=== PATIENT | male | born 1940 | race Caucasian/White ===

== ENCOUNTER 2018-04-04 08:48 | Observation (INO) ==
[2018-04-04] MEDS ORDERED: Naloxone 0.4 MG/ML INJ IVP PRN (09:09)
[2018-04-04] MEDS ORDERED: OXYCODONE Oral CONC 10 MG/0.5 ML ORAL.SYG SL PRN (09:09)
[2018-04-04] MEDS ORDERED: *HR* Promethazine 25 MG/ML VIAL IVP PRN (09:09)
[2018-04-04] MEDS ORDERED: Ketorolac 15 MG/ML VIAL IVP PRN (09:09)
[2018-04-04] MEDS ORDERED: 0.9 % Sodium Chloride 1,000 ML IVC SCH (09:15)
[2018-04-04 10:06] LABS: Basophils % 0.1 %; Hematocrit 34.2 % (37.5-50.1); Immature Granulocytes % 0.5 % (0-4); Lymphocytes # 0.5 K/mcL (0.6-4.6); Lymphocytes % 3.4 %; Mean Corpuscular HGB Conc 35.1 g/dL (31.6-35.5); Mean Corpuscular Hemoglobin 32.3 pg (28.0-33.3); Mean Corpuscular Volume 91.9 fL (83.0-100.0); Mean Platelet Volume 10.8 fL (9.4-12.4); Neutrophils # 14.2 K/mcL (1.6-8.9); Platelet Count 231 K/mcL (140-400); Red Blood Count 3.72 M/mcL (4.19-5.50); Red Cell Distribution Width 11.7 % (11.5-14.5)
[2018-04-04] MEDS ORDERED: MORPHINE SUL Oral CONC 10 MG/0.5 ML ORAL.SYG PO PRN (10:11)
[2018-04-04 10:24] LABS: BUN/Creatinine Ratio 16 (6-26); Blood Urea Nitrogen 17 mg/dL (8-23); Calcium 9.9 mg/dL (8.6-10.3); Carbon Dioxide 27 mEq/L (23-29); Chloride 97 mEq/L (98-107); Glucose 153 mg/dL (70-105); Osmolality,Calculated 279 (280-300); Potassium 4.3 mEq/L (3.5-5.1); Sodium 132 mEq/L (136-145); eGFR For Non-African Americans > 60 (> 60)
[2018-04-04] MEDS: 0.9 % Sodium Chloride 1,000 ML IVC SCH ×2 (11:16→20:04)
[2018-04-04] MEDS: Ondansetron 4 MG/2 ML VIAL IVP PRN (11:17)
[2018-04-04] MEDS: Levofloxacin 500 MG/100 ML 500 MG/100 ML BAG IVPB SCH (11:21)
--- NOTE | 2018-04-04 12:43 | Urology History & Physical ---
Date of Encounter: 04/04/18 Time of Encounter: 12:41 Assessment and Plan (1) Ureteral stone with hydronephrosis Current Visit: Yes Status: Acute I reviewed the CT scan stone protocol. he has a perinephric hematoma which can occur after ESWL. no toradol/anticoagulation and condition can be observed. he has multiple small fragments with the leading stone at the UVJ. he wishes to try to pass the stones overnight prior to proceeding with a stone extraction. will tentatively schedule tomorrow. labs OK. expected increase in WBC and mild anemia. renal function normal. History of Present Illness Chief complaint: left flank pain HPI: Mr. Michel is a 77 year old male ESWL monday for a 1 cm proximal left stone. has not passed any fragments. severe pain and N/V. Past Med Surg Social Fam HX - Past Medical History Medical history: cancer, other Psychiatric history: no psych history - Past Surgical History Surgical History: cancer surgery, prostatectomy - Social History Smoking Status: Unknown if ever smoked Smokeless Tobacco Status: No Alcohol use: none Drug use: none Medications and Allergies Aspirin 81 mg PO DAILY 01/15/16 [History] Simvastatin [Zocor] 40 mg PO HS 01/15/16 [History] Bicalutamide [Casodex] 50 mg PO DAILY 04/02/18 [History] Donepezil [Aricept] 5 mg PO HS 04/02/18 [History] HYDROcodone/Acet 5/325 mg [[place] 5-325 mg] 1 tab PO Q4H PRN 5 Days #15 tab 04/02 [Rx] Omeprazole [PriLOSEC] 40 mg PO DAILY 04/02/18 [History] Tramadol HCl [Ultram] 50 mg PO Q8H PRN 04/02/18 [History] Trazodone HCl 100 mg PO HS 04/02/18 [History] Venlafaxine [Effexor] 37.5 mg PO BID 04/02/18 [History] 3 Allergy/AdvReac Type Severity Reaction Status Date / Time Amoxicillin [From Amoxil] Allergy Rash Verified 04/02/18 12:02 Review of Systems - Constitutional no chills, no fever(s) - Cardiovascular no chest pain - Respiratory no cough - Gastrointestinal abdominal pain, nausea, vomiting - Genitourinary flank pain Exam Initial Vital Signs Temp Pulse Resp BP Pulse Ox 98.3 F 66 15 180/81 94 04/04/18 10:04 04/04/18 10:04 04/04/18 10:04 04/04/18 10:04 04/04/18 10:04 - General physical appearance Present: well developed, no distress, moderate pain - Eyes Present: PERRL - ENT Present: normal nares - Neck Present: no masses - Respiratory Present: normal respiratory effort - Cardiovascular Cardiovascular exam IM: RRR - Abdomen Abdomen: Present: soft, suprapubic tenderness - Integumentary Present: no rash - Neurologic Absent: disoriented, confused - Additional Findings obvious pain Urology Results - Labs 04/04/18 09:43 04/04/18 09:43 Abnormal lab results WBC 15.8 K/mcL (4.3-11.1) H 04/04/18 09:43 RBC 3.72 M/mcL (4.19-5.50) L 04/04/18 09:43 Hgb 12.0 g/dL (12.9-16.9) L 04/04/18 09:43 Hct 34.2 % (37.5-50.1) L 04/04/18 09:43 Neutrophils # 14.2 K/mcL (1.6-8.9) H 04/04/18 09:43 Lymphocytes # 0.5 K/mcL (0.6-4.6) L 04/04/18 09:43 Sodium 132 mEq/L (136-145) L 04/04/18 09:43 Chloride 97 mEq/L (98-107) L 04/04/18 09:43 Glucose 153 mg/dL (70-105) H 04/04/18 09:43 Calculated Osmolality 279 (280-300) L 04/04/18 09:43 Diabetes panel 04/04/18 Range/Units 09:43 Sodium 132 L (136-145) mEq/L Potassium 4.3 (3.5-5.1) mEq/L Chloride 97 L (98-107) mEq/L Carbon Dioxide 27 (23-29) mEq/L BUN 17 (8-23) mg/dL Creatinine 1.08 (0.70-1.30) mg/dL Glucose 153 H (70-105) mg/dL Calcium 9.9 (8.6-10.3) mg/dL Calcium panel 04/04/18 Range/Units 09:43 Calcium 9.9 (8.6-10.3) mg/dL Pituitary panel 04/04/18 Range/Units 09:43 Sodium 132 L (136-145) mEq/L Potassium 4.3 (3.5-5.1) mEq/L Chloride 97 L (98-107) mEq/L Carbon Dioxide 27 (23-29) mEq/L BUN 17 (8-23) mg/dL Creatinine 1.08 (0.70-1.30) mg/dL Glucose 153 H (70-105) mg/dL Calcium 9.9 (8.6-10.3) mg/dL Adrenal panel 04/04/18 Range/Units 09:43 Sodium 132 L (136-145) mEq/L Potassium 4.3 (3.5-5.1) mEq/L Chloride 97 L (98-107) mEq/L Carbon Dioxide 27 (23-29) mEq/L BUN 17 (8-23) mg/dL Creatinine 1.08 (0.70-1.30) mg/dL Glucose 153 H (70-105) mg/dL Calcium 9.9 (8.6-10.3) mg/dL All other labs normal.
[2018-04-04] MEDS: OXYCODONE Oral CONC 10 MG/0.5 ML ORAL.SYG SL PRN ×2 (12:53→20:01)
[2018-04-04] MEDS ORDERED: traZODone 50 MG TABLET PO SCH (21:00)
[2018-04-05] MEDS: 0.9 % Sodium Chloride 1,000 ML IVC SCH ×2 (03:16→12:00)
--- NOTE | 2018-04-05 07:10 | Urology Progress Note ---
Date of Encounter: 04/05/18 Time of Encounter: 07:08 - Assessment and Plan (1) Ureteral stone with hydronephrosis Current Visit: Yes Status: Acute Assessment and plan: keep NPO. consent signed. plan for stone extraction today. no longer hurting but I suspect stones are still there. will obtain KUB. no new labs needed today. Progress Note Narrative: pt no longer hurting. still not much appetite. no vomiting overnight. urine clear. Objective Initial Vital Signs Temp Pulse Resp BP Pulse Ox 98.3 F 66 15 180/81 94 04/04/18 10:04 04/04/18 10:04 04/04/18 10:04 04/04/18 10:04 04/04/18 10:04 - General physical appearance Present: no distress - Labs 04/04/18 09:43 04/04/18 09:43 Diabetes panel 04/04/18 Range/Units 09:43 Sodium 132 L (136-145) mEq/L Potassium 4.3 (3.5-5.1) mEq/L Chloride 97 L (98-107) mEq/L Carbon Dioxide 27 (23-29) mEq/L BUN 17 (8-23) mg/dL Creatinine 1.08 (0.70-1.30) mg/dL Glucose 153 H (70-105) mg/dL Calcium 9.9 (8.6-10.3) mg/dL Calcium panel 04/04/18 Range/Units 09:43 Calcium 9.9 (8.6-10.3) mg/dL Pituitary panel 04/04/18 Range/Units 09:43 Sodium 132 L (136-145) mEq/L Potassium 4.3 (3.5-5.1) mEq/L Chloride 97 L (98-107) mEq/L Carbon Dioxide 27 (23-29) mEq/L BUN 17 (8-23) mg/dL Creatinine 1.08 (0.70-1.30) mg/dL Glucose 153 H (70-105) mg/dL Calcium 9.9 (8.6-10.3) mg/dL Adrenal panel 04/04/18 Range/Units 09:43 Sodium 132 L (136-145) mEq/L Potassium 4.3 (3.5-5.1) mEq/L Chloride 97 L (98-107) mEq/L Carbon Dioxide 27 (23-29) mEq/L BUN 17 (8-23) mg/dL Creatinine 1.08 (0.70-1.30) mg/dL Glucose 153 H (70-105) mg/dL Calcium 9.9 (8.6-10.3) mg/dL - VTE Documentation of Mechanical Device: Intermittent pneumatic compression device Consult Discharge Plan - Plan Referrals: Henri Reaves DO [Primary Care Provider] - Jonn Botello MD [Partnered Physician] -
[2018-04-05] MEDS ORDERED: Bicalutamide 50 MG TABLET PO SCH (09:00)
[2018-04-05] MEDS: Levofloxacin 500 MG/100 ML 500 MG/100 ML BAG IVPB SCH (09:08)
[2018-04-05] MEDS: OXYCODONE Oral CONC 10 MG/0.5 ML ORAL.SYG SL PRN (09:10)
[2018-04-05] MEDS: Ondansetron 4 MG/2 ML VIAL IVP PRN (09:10)
--- NOTE | 2018-04-05 16:40 | Anesthesia Evaluation PreOp ---
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: Other (ANXIETY, DEPRESSION, EARLY DEMENTIA) Other Medical History: GERD, Other (ESWL 4 DAYS AGO) Anesthesia History: Past Anesthesia, Problems (PONV post ESWL on Monday) Alcohol Use: none Drug use: none Medications and Allergies Aspirin 81 mg PO DAILY 01/15/16 [History] Simvastatin [Zocor] 40 mg PO HS 01/15/16 [History] Bicalutamide [Casodex] 50 mg PO DAILY 04/02/18 [History] Donepezil [Aricept] 5 mg PO HS 04/02/18 [History] HYDROcodone/Acet 5/325 mg [[place] 5-325 mg] 1 tab PO Q4H PRN 5 Days #15 tab 04/02 [Rx] Omeprazole [PriLOSEC] 40 mg PO DAILY 04/02/18 [History] Tramadol HCl [Ultram] 50 mg PO Q8H PRN 04/02/18 [History] Trazodone HCl 100 mg PO HS 04/02/18 [History] Venlafaxine [Effexor] 37.5 mg PO BID 04/02/18 [History] 3 Allergy/AdvReac Type Severity Reaction Status Date / Time Amoxicillin [From Amoxil] Allergy Rash Verified 04/02/18 12:02 - Meds/Allergy Pre-op Review Medications Reviewed: Yes Allergies Reviewed: Yes Beta Blockers on Current Med List: No Anesthesia Results - Labs 04/04/18 09:43 04/04/18 09:43 Anesthesia Exam Vital Signs/O2 Sat/Glucose, Most Recent Temp Pulse Resp BP Pulse Ox 98.4 F 68 15 148/80 96 04/05/18 15:55 04/05/18 15:55 04/05/18 15:55 04/05/18 15:55 04/05/18 15:55 Blood Glucose* 103 Height: 1.73 m Weight: 79 kg NPO (# of Hours): 8 - HEENT Pupil (Motor): Pupils equal Mallampati: II Teeth: Edentulous Oral Opening: Greater than 3 - GLASS ETCHER LOC: Oriented - Cardiac Rhythm: Regular - Pulmonary Breath Sounds: bilateral Clear Anesthesia Assess/Plan ASA Score: 3 Modified B[place] Scale for Level of Consciousness: Cooperative, oriented, and tranquil Anesthetic Plan: General Monitoring Plan: Standard Monitors Recovery Plan: PACU
[2018-04-05] MEDS ORDERED: *HR* Propofol 200 MG/20 ML VIAL IVP ONE (16:43)
[2018-04-05] MEDS ORDERED: *HR* Succinylcholine 200 MG/10 ML VIAL IVP ONE (16:43)
[2018-04-05] MEDS ORDERED: *HR* FentaNYL (PF) 100 MCG/2 ML VIAL ONE (16:43)
[2018-04-05] MEDS ORDERED: Lidocaine -MPF 2% 2 ML VIAL ONE (16:43)
[2018-04-05] MEDS ORDERED: Ondansetron 4 MG/2 ML VIAL ONE (16:43)
[2018-04-05] MEDS ORDERED: Dexamethasone 4 MG/ML VIAL ONE (16:43)
[2018-04-05] MEDS ORDERED: Propofol 500 MG/50 ML INFUS..BTL ONE (16:48)
--- NOTE | 2018-04-05 16:51 | Anesthesia Evaluation PreOp ---
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, Depression) Alcohol Use: none Drug use: none Medications and Allergies Aspirin 81 mg PO DAILY 01/15/16 [History] Simvastatin [Zocor] 40 mg PO HS 01/15/16 [History] Bicalutamide [Casodex] 50 mg PO DAILY 04/02/18 [History] Donepezil [Aricept] 5 mg PO HS 04/02/18 [History] HYDROcodone/Acet 5/325 mg [[place] 5-325 mg] 1 tab PO Q4H PRN 5 Days #15 tab 04/02 [Rx] Omeprazole [PriLOSEC] 40 mg PO DAILY 04/02/18 [History] Tramadol HCl [Ultram] 50 mg PO Q8H PRN 04/02/18 [History] Trazodone HCl 100 mg PO HS 04/02/18 [History] Venlafaxine [Effexor] 37.5 mg PO BID 04/02/18 [History] 3 Allergy/AdvReac Type Severity Reaction Status Date / Time Amoxicillin [From Amoxil] Allergy Rash Verified 04/02/18 12:02 Anesthesia Results - Labs 04/04/18 09:43 04/04/18 09:43
[2018-04-05] MEDS ORDERED: *HR* Labetalol 20 MG/4 ML SYRINGE IVP PRN (17:25)
[2018-04-05] MEDS ORDERED: *HR* OxyCODONE Immed Rel 5 MG TABLET PO PRN (17:25)
[2018-04-05] MEDS ORDERED: *HR* Promethazine 25 MG/ML VIAL IVP PRN ×2 (17:25→18:32)
--- NOTE | 2018-04-05 17:46 | Operative Note ---
Date of procedure: 04/05/18 Pre-op diagnosis: left distal ureteral stones Post-op diagnosis: same Procedure: Left ureteroscopic basket removal of stone, left 4.8 x 28 cm ureteral stent placement Anesthesia: GETA Surgeon: Ryan Morales Was there an physical therapy assistant present: No Estimated blood loss (cc): 0 Specimen: Left ureteral stone Condition: stable Disposition: PACU Procedure in Detail: Patient was prepped and draped in normal sterile fashion. Timeout procedure performed. I then inserted the semirigid ureteroscope into the patient's bladder. I could visualize some stone at the left ureteral orifice. I then was able to use the basket to grab this leading stone. I was then able to place 2 ureteroscope into the distal left ureter and remove all stone fragments using a basket device. I then fully surveyed the entire left ureter with no further stone seen. A sensor wire was then placed into the left kidney. I then placed a 4.8 x 28 cm stent with good curl seen in the left kidney and in the bladder. A string was left for easy removal in 2-3 days. Patient taken to PACU in stable condition.
--- NOTE | 2018-04-05 17:49 | Discharge Summary ---
Orders not resulted at time of discharge: Pending orders 04/05/18 17:37 Surgical Pathology [PTH] Routine Date of Encounter: 04/05/18 Time of Encounter: 17:47 - Discharge Diagnosis (1) Ureteral stone with hydronephrosis Priority: Primary Status: Acute - Hospital Course Hospital course: Mr. Michel is a 77 year old male who was brought into the hospital for pain control after distal ureteral stones were found on CT scan causing obstruction. Patient discharged home after undergoing left ureteroscopic stone extraction. Stent was in place. Time spent discussing smoking cessation with patient: 3 to 10 minutes - Time Spent with Patient Total time spent providing and/or coordinating discharge services: Less than 30 minutes Procedures and tests throughout hospitalization: Left ureteroscopic stone extraction on 04/05/2018 Labs on day of discharge: Labs from last 24 hours 04/04/18 11:10 POC Glucose 138 H - Impressions ITS Impressions Abdomen/Pelvis CT 04/04/18 09:09 IMPRESSION: 1. Large left subcapsular hematoma extending into the perinephric space and extending inferiorly toward the left inguinal and presacral space. 2. Multiple stone fragments in the distal left ureter causing hydronephrosis and hydroureter. 3. 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 Correlate with PSA levels. 4. Small left pleural effusion and bibasilar atelectasis. Findings were discussed with Jonn Botello at 10:05 am on 04/04/2018. D/ / Hany Whitt MD / Hany Whitt MD Interpreting Provider: Hany Whitt MD X-Ray 04/05/18 07:10 IMPRESSION: 1. Stable appearance of distal left ureteral and UVJ stones over a length of 2.8 cm. 2. Unremarkable bowel gas pattern. D/ / 04/05/2018 09:03:49 Alicia Martinez MD / rio Interpreting Provider: Alicia Martinez MD - Discharge Medications Prescriptions: HYDROcodone/Acet 5/325 mg [[place] 5-325 mg] 1 tab PO Q6H PRN 3 Days #12 tab PRN Reason: Pain Home Medications: Aspirin 81 mg PO DAILY 01/15/16 [History] Simvastatin [Zocor] 40 mg PO HS 01/15/16 [History] Bicalutamide [Casodex] 50 mg PO DAILY 04/02/18 [History] Donepezil [Aricept] 5 mg PO HS 04/02/18 [History] Omeprazole [PriLOSEC] 40 mg PO DAILY 04/02/18 [History] Tramadol HCl [Ultram] 50 mg PO Q8H PRN 04/02/18 [History] Trazodone HCl 100 mg PO HS 04/02/18 [History] Venlafaxine [Effexor] 37.5 mg PO BID 04/02/18 [History] HYDROcodone/Acet 5/325 mg [[place] 5-325 mg] 1 tab PO Q6H PRN 3 Days #12 tab 04/05 [Rx] Allergies/Adverse Reactions: 3 Allergy/AdvReac Type Severity Reaction Status Date / Time Amoxicillin [From Amoxil] Allergy Rash Verified 04/02/18 12:02 Date of admission: 04/04/18 08:56 Primary care physician: Henri Reaves DO Discharging clinician: Ryan Morales Anticipated date of discharge: 04/05/18 Exam Initial Vital Signs Temp Pulse Resp BP Pulse Ox 98.3 F 66 15 180/81 94 04/04/18 10:04 04/04/18 10:04 04/04/18 10:04 04/04/18 10:04 04/04/18 10:04 - General physical appearance Present: well developed, well nourished - Eyes Present: PERRL - Cardiovascular Cardiovascular exam IM: RRR - Patient Status Disposition: Home, Self-Care Condition: Good Functional capacity at discharge: independent ambulation Overall status at discharge: patient is progressing back to baseline - Discharge Instructions Follow Up With: Henri Reaves DO [Primary Care Provider] - Jonn Botello MD [Partnered Physician] - (Keep scheduled follow-up) Additional Instructions: [id number] (Rev. 02/14) Page 1 of 2 POST-OPERATIVE HOME GOING INSTRUCTIONS: URETEROSCOPY/STENT/CYSTOSCOPY [facility] [address] [facility] [id number] Dr[address] Ayan Black Your post-operative appointment has been scheduled for 1. When you leave Same Day Surgery you may be given: Prescriptions - Please finish all antibiotics. follow- up visit if instructed by your physician. 2. You should drink 6-8 glasses of water per day, as long as you are not on fluid restrictions by another physician. 3. It is very common to have blood and small clots in you urine following surgery. You may also experience urinary tract discomfort, irritation of the bladder and urethra (frequency, urgency, and pain/burning with urination), and occasional inability to control your urine. No sexual intercourse until evaluated by your physician 4. If you have a stent, you can expect pain: In your bladder radiating up to your kidney when, and after, you urinate When lifting something heavy When you turn or bend If you have a stent, you can expect frequency, urgency, and burning with urination and intermittent pink/red colored urine. You can work with a stent in place, but if you do a lot of heavy lifting or moving around you will see more blood in your urine. This is OKAY- just drink more fluids. If a string is taped to your abdomen, penis or thigh, it is connected to your stent. DO NOT pull on, or cut, your stent string, unless otherwise instructed by your physician. 5. Okay for patient to remove stent in 2-3 days. - Diet and Activity Activity: increase activity as tolerated Diet: advance to your usual diet - VTE Documentation of Mechanical Device: Intermittent pneumatic compression device
--- NOTE | 2018-04-05 18:17 | Anesthesia Evaluation Post Op ---
Date of Encounter: 04/05/18 Time of Encounter: 18:16 Notes: Patient's vital signs have been reviewed. Patient is stable postoperatively and has adequately recovered from anesthesia. Patient is determined to have stable airway patency and respiratory function including respiratory rate and oxygen saturation. Patient has a stable heart rate, blood pressure and adequate hydration. Patients mental status is acceptable. Patients temperature is appropriate. Pain and nausea are adequately controlled. - Discharge PostOp Status: Transfer Patient to floor
[2018-04-05] MEDS ORDERED: Naloxone 0.4 MG/ML INJ IVP PRN (18:32)
[2018-04-05] MEDS ORDERED: OXYCODONE Oral CONC 10 MG/0.5 ML ORAL.SYG SL PRN ×2 (18:32)
[2018-04-05] MEDS ORDERED: 0.9 % Sodium Chloride 1,000 ML IVC SCH (18:32)
[2018-04-05] MEDS ORDERED: MORPHINE SUL Oral CONC 10 MG/0.5 ML ORAL.SYG PO PRN (18:32)
[2018-04-05] MEDS ORDERED: Ondansetron 4 MG/2 ML VIAL IVP PRN (18:32)
[2018-04-05 18:49] VITALS: BP 140/74
[2018-04-05] MEDS ORDERED: traZODone 50 MG TABLET PO SCH (21:00)
[2018-04-06] MEDS ORDERED: Levofloxacin 250 MG/50 ML 250 MG/50 ML BAG IVPB SCH (09:00)
[2018-04-06] MEDS ORDERED: Bicalutamide 50 MG TABLET PO SCH (09:00)
[2018-04-06] MEDS ORDERED: LEVOFLOXACIN 250 MG/50 ML IVPB SCH (09:00)
== END 2018-04-05 20:32 | disposition home or self-care (01) ==
LOC: 3ANU
PROVIDERS: ADMIT Urology; ATTEND Urology